=== PATIENT | male | born 1960 | race Caucasian/White ===

== ENCOUNTER → 2020-09-15 09:03 | Outpatient (CLI) | payer MEDICARE ==
[2020-04-01 08:10] VITALS: BMI 48.9
[~2020-09-15 09:03] MED LIST: BUSPAR5 MG PO; CELEBREX50 MG PO; CYMBALTA30 MG PO; ELIQUIS5 MG PO; LIPITOR10 MG PO; NEURONTIN600 MG PO; PLAVIX75 MG PO; TOPAMAX50 MG PO; ZANAFLEX2 M1 PO
== END | disposition home or self-care (01) ==
LOC: D.LAB 09:02
PROVIDERS: ATTEND Internal Medicine Pulmonary Disease
DX: Z11.52 Encounter for screening for COVID-19 (principal)

== ENCOUNTER → 2020-09-19 08:37 | Outpatient (CLI) | payer MEDICARE ==
[2020-04-01 08:10] VITALS: BMI 48.9
== END | disposition home or self-care (01) ==
LOC: D.RT 08:37
PROVIDERS: ATTEND Internal Medicine Pulmonary Disease
DX: J44.9 Chronic obstructive pulmonary disease, unspecified (principal); Z86.711 Personal history of pulmonary embolism